=== PATIENT | female | born 1980 | race Two or more races ===

== ENCOUNTER 2023-04-28 13:46 | Emergency (ER) | payer MEDICAID ==
[~2023-04-28] VITALS: Ht 157.5 cm; Wt 55.0 kg
[2023-04-28] MEDS: MORPHINE SULFATE 4 MG/ML SYR/VIAL IV ONE ×2 (14:08→16:06)
[2023-04-28] MEDS: ONDANSETRON HCL 4 MG/2 ML VIAL IV ONE (14:08)
[2023-04-28] MEDS: SODIUM CHLORIDE 0.9% 1,000 ML IVB ONE (14:09)
[2023-04-28 14:36] VITALS: PULSE 74; RESP 20; O2SAT 100
[2023-04-28 15:24] LABS: Basophils # (auto) 0 10 ^3/uL (0-0.2); Basophils % (auto) 0.3 % (0.0-2.0); Eosinophils # (auto) 0.1 10 ^3/uL (0-0.8); Eosinophils % (auto) 0.4 % (0.0-7.0); Hemoglobin 12.5 g/dL (12.2-16.2); Lymphocytes # (auto) 1.8 10 ^3/uL (0.4-5.4); Lymphocytes % (auto) 11.2 % (10.0-50.0); Mean Corpuscular Hemoglobin 30.9 pg (28.0-32.0); Mean Corpuscular Hgb Conc. 32.8 g/dL (32.0-36.0); Mean Corpuscular Volume 94.1 fL (80.0-100.0); Monocytes # (auto) 0.6 10 ^3/uL (0-1.3); Monocytes % (auto) 3.6 % (0.0-12.0); Neutrophils # (auto) 13.3 10 ^3/uL (1.6-8.6); Neutrophils % (auto) 84.5 % (37.0-80.0); Red Blood Cells 4.03 10^6/uL (4.0-5.20); Red Cell Distribution Width 13.4 % (11.8-14.3); White Blood Cell 15.8 10^3/uL (4.4-10.8)
[2023-04-28 15:33] LABS: Chloride 109 mmol/L (98-107); Potassium 3.9 mmol/L (3.5-5.1); Sodium 140 mmol/L (136-145)
[2023-04-28 15:34] LABS: Anion Gap 9 (5-15); Calcium 8.7 mg/dL (8.5-10.1); Carbon Dioxide 22 mmol/L (20-30)
[2023-04-28 15:39] LABS: BUN/Creatinine Ratio 12.3 (10.0-20.0); Blood Urea Nitrogen 8 mg/dL (9-23); Glucose 112 mg/dL (74-106)
[2023-04-28 15:41] LABS: INR 1.06 (0.9-1.15); Partial Thromboplastin Time 28.8 SEC (24.5-34.5); Prothrombin Time 11.1 sec (9.3-11.8)
[2023-04-28] MEDS: PROCHLORPERAZINE EDISYLATE 5 MG/ML 2ML VIAL IV ONE (16:54)
[2023-04-28] MEDS: HYDROmorphone HCL 2 MG/ML VL/or syr IV ONE (16:54)
[2023-04-28] MEDS: PROCHLORPERAZINE EDISYLATE 5 MG/ML 2ML VIAL ONE (17:03)
[2023-04-28] MEDS: HYDROmorphone HCL 2 MG/ML VL/or syr ONE (17:03)
[2023-04-28 18:00] VITALS: O2SAT 98
[2023-04-28 18:20] VITALS: BP 111/60; PULSE 56; RESP 12
== END 2023-04-28 18:54 | disposition home or self-care (01) ==
LOC: ER 13:46 → EDBD 13:46 → ER 18:54
DX: O03.9 Complete or unspecified spontaneous abortion without complication (principal); R10.2 Pelvic and perineal pain; Z3A.01 Less than 8 weeks gestation of pregnancy
CPT/HCPCS: 36415; 76801; 80048; 84702; 85025; 85610; 85730; 86850; 86900; 86901; 96361; 96374; 96375; 96376; 99285; J0780; J1170; J2270; J2405; J7030